=== PATIENT | female | born 1975 | race African-American/Black ===

== ENCOUNTER 2019-07-07 11:39 | Emergency (ER) | payer SELFPAY ==
[2019-07-07 12:07] VITALS: BP 135/84
--- NOTE | 2019-07-07 12:16 | PHYS DOC ---
Past History Past Medical History: No Pertinent History Past Surgical History: Alcohol Use: None Drug Use: None Adult General Chief Complaint Chief Complaint: FOOT INJURY PAIN HPI HPI 44-year-old female presents with left foot and ankle pain. The patient was at a local store when some rocks fell in front of her. She smacked her foot into them and twisted it downward. She then had several other heavy items fall on this foot. She now has pain over the top of the foot and the medial ankle. She has not taken any medications. She is able to walk. Review of Systems Review of Systems Constitutional: Denies fever or chills [] Eyes: Denies change in visual acuity, redness, or eye pain [] HENT: Denies nasal congestion or sore throat [] Respiratory: Denies cough or shortness of breath [] Cardiovascular: No additional information not addressed in HPI [] GI: Denies abdominal pain, nausea, vomiting, bloody stools or diarrhea [] : Denies dysuria or hematuria [] Musculoskeletal: Left foot and ankle pain[] Integument: Denies rash or skin lesions [] Neurologic: Denies headache, focal weakness or sensory changes [] Endocrine: Denies polyuria or polydipsia [] All other systems were reviewed and found to be within normal limits, except as documented in this note. Allergies Allergies Allergies Coded Allergies Type Severity Reaction Last Updated Verified No Known Drug Allergies 07/07/19 No Physical Exam Physical Exam Constitutional: Well developed, well nourished, no acute distress, non-toxic appearance. [] HENT: Normocephalic, atraumatic, bilateral external ears normal, oropharynx moist, no oral exudates, nose normal. [] Eyes: PERRLA, EOMI, conjunctiva normal, no discharge. [] Neck: Normal range of motion, no tenderness, supple, no stridor. [] Cardiovascular:Heart rate regular rhythm, no murmur [] Lungs & Thorax: Bilateral breath sounds clear to auscultation [] Abdomen: Bowel sounds normal, soft, no tenderness, no masses, no pulsatile masses. [] Skin: Warm, dry, no erythema, no rash. [] Back: No tenderness, no CVA tenderness. [] Extremities: Diffuse tenderness of the top of the left foot and medial ankle, no cyanosis, no clubbing, ROM intact, no edema. [] Neurologic: Alert and oriented X 3, normal motor function, normal sensory function, no focal deficits noted. [] Psychologic: Affect normal, judgement normal, mood normal. [] Current Patient Data Vital Signs Vital Signs Date Time Temp Pulse Resp B/P (MAP) Pulse Ox O2 Delivery O2 Flow Rate FiO2 07/07/19 12:07 98.1 94 16 97 EKG EKG [] Radiology/Procedures Radiology/Procedures [] Impressions: Examination: 3 views of the left ankle HISTORY: history of pain COMPARISON: None available. FINDINGS: The alignment of the ankle mortise grossly appears unremarkable. There is no acute fracture or dislocation identified. IMPRESSION: No acute osseous findings. Electronically signed by: Sarwat Holloway MD (07/07/2019 12:22 PM) [id number] DICTATED AND SIGNED BY: SARWAT HOLLOWAY MD DATE: 07/07/19 1222 CC: LIANET BISWAS DO; TRAN JIMENES MD ~ Three-view left foot series Clinical indications: Left foot pain FINDINGS: No acute fracture or dislocation or lytic process evident. Alignment is normal. Tiny plantar spur of the calcaneus is seen. IMPRESSION: No acute osseous abnormality. Electronically signed by: Tyler Clifton MD (07/07/2019 12:13 PM) [id number] DICTATED AND SIGNED BY: TYLER CLIFTON MD DATE: 07/07/19 1213 CC: LIANET BISWAS DO; TRAN JIMENES MD ~ Course & Med Decision Making Course & Med Decision Making Pertinent Labs and Imaging studies reviewed. (See chart for details) The patient's x-rays are negative for fracture. She likely does has a contusion or midfoot sprain. I have advised supportive care with NSAIDs, rest, ice. She is stable for discharge at this time. [] Dragon Disclaimer Dragon Disclaimer This electronic medical record was generated, in whole or in part, using a voice recognition dictation system. Departure Departure: Impression: Primary Impression: Foot sprain Disposition: 01 HOME, SELF-CARE Condition: STABLE Referrals: TRAN JIMENES MD (PCP) Patient Instructions: Foot Sprain-Brief Problem Qualifiers Primary Impression: Foot sprain Encounter type: initial encounter Laterality: left Qualified Codes: S93.602A - Unspecified sprain of left foot, initial encounter LIANET BISWAS DO Jul 07, 2019 12:16
--- NOTE | 2019-07-07 12:25 | RAD ---
Examination: 3 views of the left ankle HISTORY: history of pain COMPARISON: None available. FINDINGS: The alignment of the ankle mortise grossly appears unremarkable. There is no acute fracture or dislocation identified. IMPRESSION: No acute osseous findings. Electronically signed by: Sarwat Holloway MD (07/07/2019 12:22 PM) [place] [id number]
== END 2019-07-07 12:50 | disposition home or self-care (01) ==
LOC: ER 11:39
DX: S93.602A Unspecified sprain of left foot, initial encounter (principal); W20.8XXA Other cause of strike by thrown, projected or falling object, initial encounter; Y93.89 Activity, other specified; Y92.512 Supermarket, store or market as the place of occurrence of the external cause; Y99.8 Other external cause status
CPT/HCPCS: 73610; 73630; 99284